=== PATIENT | female | born 1970 | race African-American/Black ===

== ENCOUNTER 2017-03-06 11:02 | Emergency (ER) | payer MEDICAID ==
[~2017-03-06] VITALS: Ht 165.1 cm; Wt 65.0 kg
[2017-03-06 11:30] VITALS: BP 149/84
[2017-03-06] MEDS ORDERED: ONDANSETRON HCL 4MG/2ML VIAL IV NR (11:30)
[2017-03-06] MEDS ORDERED: FOLIC ACID 1 MG, THIAMINE HCL 100 MG, MVI, ADULT NO.1 10 ML in DEXTROSE 5% WATER 1,000 ML IV NR ×4 (11:30)
[2017-03-06 12:07] LABS: EOSINOPHILS % 0.7 % (0.0-5.0); HEMATOCRIT. 34.6 % (36.0-48.0); HEMOGLOBIN. 11.5 g/dL (12.0-16.0); LYMPHOCYTES % 30.2 % (20.0-50.0); MEAN CORPUSCULAR HEMOGLOBIN 35.3 pg (28.0-32.0); MEAN CORPUSCULAR VOLUME 106.3 fL (81.0-99.0); MEAN PLATELET VOLUME 8.2 fl (7.4-10.4); MONOCYTES % 11.6 % (2.0-8.0); NEUTROPHILS % 56.5 % (40.0-76.0); PLATELET 193 x1000/uL (130-400); RED BLOOD CELL COUNT 3.25 mill/uL (4.2-5.4); RED CELL DISTRIBUTION WIDTH 15.1 % (11.6-14.6)
[2017-03-06 12:18] LABS: CARBON DIOXIDE 19 mEq/L (21-32); CHLORIDE 107 mEq/L (98-107)
[2017-03-06 12:26] LABS: ETHANOL BLOOD 420 mg/dL
== END 2017-03-06 16:26 | disposition left against medical advice (07) ==
LOC: ER 11:38
DX: K52.9 Noninfective gastroenteritis and colitis, unspecified (principal); F10.129 Alcohol abuse with intoxication, unspecified; F12.10 Cannabis abuse, uncomplicated
CPT/HCPCS: 36415; 80053; 80307; 80329; 83690; 85025; 96365; 96366; 96375; 99285; G0482; J2405; J3411; J3490; J7070; Z7610